=== PATIENT | female | born 1965 | race American Indian/Alaskan Native ===

== ENCOUNTER 2017-07-15 20:33 | Emergency (ER) | payer BC ==
[2017-07-16 00:40] LABS: Basophils # (Auto) 0.1 K/mm3 (0.0-0.1); Basophils % (Auto) 1.9 % (0.0-1.8); Eosinophils % (Auto) 0.9 % (0.0-4.3); Hematocrit 40.8 % (30.3-42.9); Hemoglobin 13.7 gm/dl (10.1-14.3); Lymphocytes # (Auto) 2.7 K/mm3 (1.2-5.4); Lymphocytes % (Auto) 47.9 % (13.4-35.0); Mean Corpuscular HGB Conc 34 % (30-34); Mean Corpuscular Hemoglobin 31 pg (28-32); Mean Corpuscular Volume 92 fl (79-97); Monocytes # (Auto) 0.2 K/mm3 (0.0-0.8); Monocytes % (Auto) 4.2 % (0.0-7.3); Platelet Count 332 K/mm3 (140-440); Red Blood Count 4.46 M/mm3 (3.65-5.03)
[2017-07-16 00:48] LABS: BUN/Creatinine Ratio 16; Blood Urea Nitrogen 11 mg/dL (7-17); Calcium 9.5 mg/dL (8.4-10.2); Hemolysis Index 13
[2017-07-16] MEDS ORDERED: NACL 0.9% 500 ML 500 ML IV ONE (01:07)
--- NOTE | 2017-07-16 01:08 | Emergency Department Report ---
<JEMIMA SMART - Last Filed: 07/16/17 05:26> ED General Adult HPI - General Chief complaint: High BP Stated complaint: HTN Time Seen by Provider: 07/16/17 00:51 Source: patient Mode of arrival: Ambulatory Limitations: No Limitations - History of Present Illness Initial comments: This is a 52-year-old female who was previously unknown to this provider, she does not have a local primary care doctor, she indicates no chronic medical conditions. Patient presents to the ER with a primary complaint of headache. The headache is intermittent over the past week. It started 6 or 7 days ago, and at the time of onset it was not sudden or thunderclap in nature. It does not reach maximal intensity within an hour. Patient reports early wan on the day of presentation, she experienced an occipital headache, which was rapid in onset, more intense and worse than prior headaches, and she's never had a headache like this before. She currently denies severe headache, neck pain, chest pain, abdominal pain, shortness of breath, weakness, numbness, ataxia, unsteady gait. She reports that a cousin had an intracranial issue with "fluid" but does not have a history of aneurysm or subarachnoid hemorrhage that she is aware of. She reports that she typically does not get headaches and this is atypical for her. There are no DVT or pulmonary embolus risk factors. She does not have any hypercoagulable risk factors that she is aware of. -: Gradual, Sudden Location: head Radiation: non-radiation Consistency: intermittent Improves with: none Worsens with: none Associated Symptoms: headaches. denies: confusion, chest pain, cough, diaphoresis, fever/chills, loss of appetite, malaise, nausea/vomiting, rash, seizure, shortness of breath, syncope, weakness - Related Data Previous Rx's Medication Instructions Recorded Last Taken Type Butalb/Acetamin/Caff 50-325-40 1 tab PO Q6HR PRN #20 tab 07/16/17 Unknown Rx [Fioricet] HYDROcodone/APAP 5-325 [[place] 1 each PO Q6HR PRN #12 tablet 07/16/17 Unknown Rx 5/325] Allergies Allergy/AdvReac Type Severity Reaction Status Date / Time No Known Allergies Allergy Unverified 07/15/17 23:45 ED Review of Systems ROS: Stated complaint: HTN Other details as noted in HPI Comment: All other systems reviewed and negative ED Past Medical Hx - Past Medical History Previous Medical History?: Yes Hx Hypertension: Yes - Surgical History Past Surgical History?: Yes Additional Surgical History: , 1989 - Social History Smoking Status: Never Smoker Substance Use Type: Alcohol - Medications Home Medications: Home Medications Medication Instructions Recorded Confirmed Last Taken Type Butalb/Acetamin/Caff 50-325-40 1 tab PO Q6HR PRN #20 tab 07/16/17 Unknown Rx [Fioricet] HYDROcodone/APAP 5-325 [[place] 1 each PO Q6HR PRN #12 tablet 07/16/17 Unknown Rx 5/325] ED Physical Exam - General Limitations: No Limitations General appearance: alert, in no apparent distress - Head Head exam: Present: atraumatic, normocephalic - Eye Eye exam: Present: normal appearance, PERRL, EOMI, other (visual acuity intact to finger counting, color perception, reading at a close distance). Absent: nystagmus - ENT ENT exam: Present: normal exam, normal orophraynx, mucous membranes moist, normal external ear exam - Neck Neck exam: Present: normal inspection, full ROM - Respiratory Respiratory exam: Present: normal lung sounds bilaterally. Absent: respiratory distress - Cardiovascular Cardiovascular Exam: Present: regular rate, normal rhythm, normal heart sounds. Absent: systolic murmur, diastolic murmur, rubs, gallop - GI/Abdominal GI/Abdominal exam: Present: soft, normal bowel sounds. Absent: distended, tenderness, guarding, rebound, rigid, pulsatile mass - Extremities Exam Extremities exam: Present: normal inspection, full ROM, normal capillary refill. Absent: pedal edema, joint swelling, calf tenderness - Back Exam Back exam: Present: normal inspection, full ROM. Absent: tenderness, CVA tenderness (R), paraspinal tenderness, vertebral tenderness - Neurological Exam Neurological exam: Present: alert, oriented X3, CN II-XII intact, normal gait ( normal gait, normal tandem gait, negative pronator drift, normal heel to li.) , other (Extraocular movements intact. Tongue midline. No facial droop. Facial sensation intact to light touch in the V1, V2, V3 distribution bilaterally. 5 and 5 strength in 4 extremities.. Sensation is intact to light touch in 4 extremities.). Absent: motor sensory deficit - Psychiatric Psychiatric exam: Present: anxious - Skin Skin exam: Present: warm, dry, intact, normal color. Absent: rash ED Course Vital Signs 07/15/17 07/16/17 07/16/17 23:39 00:50 02:35 Temperature 98 F 98.3 F Pulse Rate 62 57 L Respiratory 18 16 Rate Blood Pressure 129/91 118/83 124/90 Blood Pressure 118/83 [Left] O2 Sat by Pulse 97 99 Oximetry 07/16/17 07/16/17 07/16/17 02:46 03:00 03:16 Temperature Pulse Rate Respiratory Rate Blood Pressure 124/90 125/84 118/83 Blood Pressure [Left] O2 Sat by Pulse 97 97 96 Oximetry 07/16/17 07/16/17 07/16/17 03:27 03:30 03:46 Temperature Pulse Rate Respiratory 16 Rate Blood Pressure 115/79 115/79 Blood Pressure [Left] O2 Sat by Pulse 96 98 Oximetry 07/16/17 07/16/17 07/16/17 04:00 04:16 04:30 Temperature Pulse Rate Respiratory Rate Blood Pressure 123/77 123/77 114/78 Blood Pressure [Left] O2 Sat by Pulse 98 96 98 Oximetry 07/16/17 07/16/17 07/16/17 04:46 05:20 05:30 Temperature Pulse Rate 61 Respiratory 15 Rate Blood Pressure 114/78 114/78 124/85 Blood Pressure [Left] O2 Sat by Pulse 99 98 96 Oximetry 07/16/17 07/16/17 07/16/17 05:46 06:00 06:16 Temperature Pulse Rate 77 80 76 Respiratory 15 16 14 Rate Blood Pressure 124/85 119/67 119/67 Blood Pressure [Left] O2 Sat by Pulse 95 95 95 Oximetry 07/16/17 07/16/17 07/16/17 06:18 06:30 06:46 Temperature Pulse Rate 71 78 71 Respiratory 15 14 Rate Blood Pressure 109/69 109/69 Blood Pressure [Left] O2 Sat by Pulse 95 96 Oximetry 07/16/17 07/16/17 07/16/17 07:00 07:16 07:30 Temperature Pulse Rate 70 60 66 Respiratory 14 14 15 Rate Blood Pressure 105/74 105/74 103/75 Blood Pressure [Left] O2 Sat by Pulse 96 97 97 Oximetry 07/16/17 07/16/17 07/16/17 07:46 07:52 08:00 Temperature 98.3 F Pulse Rate 77 71 Respiratory 23 18 15 Rate Blood Pressure 103/75 110/69 Blood Pressure 103/75 [Left] O2 Sat by Pulse 97 99 97 Oximetry 07/16/17 07/16/17 07/16/17 08:16 09:50 10:00 Temperature Pulse Rate 62 Respiratory 15 11 L Rate Blood Pressure 110/69 110/69 101/70 Blood Pressure [Left] O2 Sat by Pulse 97 96 97 Oximetry 07/16/17 07/16/17 10:16 10:30 Temperature Pulse Rate 63 64 Respiratory 14 13 Rate Blood Pressure 101/70 110/69 Blood Pressure [Left] O2 Sat by Pulse 90 92 Oximetry - Reevaluation(s) Reevaluation #1: 07/16/17 03:27 Differential diagnosis, including not limited to: Migraine headache, tension headache, cluster headache, subarachnoid hemorrhage Assessment and plan: 52-year-old female with a primary complaint of headache. The headache has been intermittent over the past week, but she reports that on the evening of presentation she experienced a rather sudden in onset occipital headache, which was stronger and different than prior headaches, and not somewhat to prior headaches. She has a GCS of 15, with an NIH score of 0 and is clinically sober at this time, with no neck pain or neck stiffness. Laboratory studies were unremarkable, she was medicated appropriately, the noncontrast CT scan of the brain was obtained which was negative for subarachnoid hemorrhage. There are no risk factors for venous sinus thrombosis. Her history and physical at this point in time is not consistent with meningitis. Extensive discussion had with patient regarding risks, benefits, alternatives for spinal tap. Patient gave verbal and written consent for spinal tap which was unsuccessful. Patient is somewhat obese, has known history of lumbar spine arthritis and was technically difficult tap. Therefore, a CT angiogram will be obtained, and the patient will be sent to fluoroscopy in the morning for a fluoroscopically guided spinal tap. Reevaluation #2: 07/16/17 05:07 Patient is resting comfortably. Patient in no distress. Awaiting CT angiogram results. Reevaluation #3: 07/16/17 05:26 Care is transferred to the oncoming ER physician, Dr. Jackson, to follow-up on CT angiogram of the head and neck, and to follow up on fluoroscopically guided spinal tap. - Lumbar Puncture Consent Obtained: verbal consent, written consent, emergent situation Time Out Performed: Yes Indication for Procedure: headache, R/O SA bleed Patient Position: Sitting Upright/Leaning F Skin Prep: Povidone-Iodine 1% Local Anesthetic Used: Lidocaine 2% Amount of anesthesia used (mls): 15 Spinal Needle Gauge: 22G Interspace Used: L3-L4 Complications: unable to obtain CSF, low back pain, bleeding Patient Tolerated Procedure: well ED Medical Decision Making - Lab Data Result diagrams: 07/15/17 23:50 07/15/17 23:50 Vital Signs 07/15/17 07/16/17 07/16/17 23:39 00:50 02:35 Temperature 98 F 98.3 F Pulse Rate 62 57 L Respiratory 18 16 Rate Blood Pressure 129/91 118/83 124/90 Blood Pressure 118/83 [Left] O2 Sat by Pulse 97 99 Oximetry Lab Results 07/15/17 07/15/17 07/16/17 Range/Units 23:50 23:50 01:17 WBC 5.7 (4.5-11.0) K/mm3 RBC 4.46 (3.65-5.03) M/mm3 Hgb 13.7 (10.1-14.3) gm/dl Hct 40.8 (30.3-42.9) % MCV 92 (79-97) fl MCH 31 (28-32) pg MCHC 34 (30-34) % RDW 13.0 L (13.2-15.2) % Plt Count 332 (140-440) K/mm3 Lymph % (Auto) 47.9 H (13.4-35.0) % [place] % (Auto) 4.2 (0.0-7.3) % Eos % (Auto) 0.9 (0.0-4.3) % Baso % (Auto) 1.9 H (0.0-1.8) % Lymph # 2.7 (1.2-5.4) K/mm3 [place] # 0.2 (0.0-0.8) K/mm3 Eos # 0.0 (0.0-0.4) K/mm3 Baso # 0.1 (0.0-0.1) K/mm3 Seg Neutrophils % 45.1 (40.0-70.0) % Seg Neutrophils # 2.6 (1.8-7.7) K/mm3 PT 13.1 (12.2-14.9) Sec. INR 0.95 (0.87-1.13) APTT 34.4 (24.2-36.6) Sec. Sodium 138 (137-145) mmol/L Potassium 4.4 (3.6-5.0) mmol/L Chloride 96.1 L (98-107) mmol/L Carbon Dioxide 28 (22-30) mmol/L Anion Gap 18 mmol/L BUN 11 (7-17) mg/dL Creatinine 0.7 (0.7-1.2) mg/dL Estimated GFR > 60 ml/min BUN/Creatinine Ratio 16 % Glucose 91 (65-100) mg/dL Calcium 9.5 (8.4-10.2) mg/dL - Radiology Data Radiology results: report reviewed, image reviewed noncontrast CT scan of the brain is negative for acute disease Critical care attestation.: If time is entered above; I have spent that time in minutes in the direct care of this critically ill patient, excluding procedure time. ED Disposition Clinical Impression: Headache Disposition: DC-01 TO HOME OR SELFCARE Condition: Stable Instructions: Acute Headache (ED) Additional Instructions: Take the Fioricet as needed for headache and take the [place] if you continue to have pain despite the Fioricet. Follow-up with your doctor as scheduled next week. If your headaches continue you will need neurology follow-up as well. Prescriptions: Butalb/Acetamin/Caff 50-325-40 [Fioricet] 1 tab PO Q6HR PRN #20 tab PRN Reason: Headache HYDROcodone/APAP 5-325 [[place] 5/325] 1 each PO Q6HR PRN #12 tablet PRN Reason: Pain Referrals: you, primary care doctor [Other] - 7-10 days <WENDY JACKSON - Last Filed: 07/16/17 12:21> ED Course - Reevaluation(s) Reevaluation #4: 07/16/17 12:18 pt feeling better, informed that results negative for sah, will be d/ioana home, has apt with a new PMD next week. ED Medical Decision Making - Lab Data Result diagrams: 07/15/17 23:50 07/15/17 23:50 - Medical Decision Making Tube 1 shows elevated RBCs that decreased to 4 in tube 4 suggesting traumatic tap. Patient has a normal CT angiogram head and neck, CT head noncontrast, and LP not suggestive of subarachnoid hemorrhage. She'll be discharged home with pain medication. ED Disposition Is pt being admited?: No Does the pt Need Aspirin: No Time of Disposition: 12:21
[2017-07-16 01:44] LABS: INR 0.95 (0.87-1.13)
[2017-07-16 01:45] LABS: Partial Thromboplastin Time 34.4 Sec. (24.2-36.6)
--- NOTE | 2017-07-16 01:55 | Cat Scan Report ---
FINAL REPORT EXAM: CT HEAD/BRAIN WO CON HISTORY: headache TECHNIQUE: Routine axial imaging was obtained of the brain without IV contrast. FINDINGS: There is no evidence of acute stroke or hemorrhage. The ventricular system is appropriate in size and is symmetric. The basal cisterns appear normal. The visualized sinuses are clear. The mastoid air cells are well pneumatized. The calvarium appears intact. IMPRESSION: No acute intracranial process.
[2017-07-16] MEDS ORDERED: SUBLIMAZE IV ONE (02:03)
[2017-07-16] MEDS ORDERED: SUBLIMAZE IV NR (02:03)
[2017-07-16] MEDS ORDERED: XYLOCAINE 2% INFILTRATI ONE (02:04)
[2017-07-16] MEDS ORDERED: NACL ONE (04:21)
--- NOTE | 2017-07-16 05:48 | Cat Scan Report ---
FINAL REPORT EXAM: CT ANGIO HEAD HISTORY: mera, ? sah TECHNIQUE: A CT angiogram was obtained of the intracranial arteries following the intravenous injection of 100 cc of Omnipaque 350. Rotational, sagittal and coronal MIP reconstructions were reviewed. FINDINGS: Both vertebral arteries are patent with normal visualization of the basilar artery. There is normal bifurcation of the basilar artery into both posterior cerebral arteries. In the anterior circulation both supraclinoid internal arteries are widely patent with normal bifurcation into the anterior and middle cerebral arteries bilaterally. There is no evidence of arterial stenosis, thrombosis or aneurysm. There is no abnormal enhancement identified. Dural venous sinuses opacify normally. IMPRESSION: Within normal limits. In particular, no evidence of aneurysm, arterial stenosis, or arterial thrombosis. Normal visualization of the dural venous sinuses.
--- NOTE | 2017-07-16 05:53 | Cat Scan Report ---
FINAL REPORT EXAM: CT ANGIO NECK HISTORY: mera, ? sah TECHNIQUE: A CT angiogram was obtained of the arteries of the neck following the intravenous injection of 100 cc Omnipaque 350. Rotational, sagittal, and coronal MIP reconstructions were reviewed. FINDINGS: Both common carotid arteries are widely patent with normal bifurcation into the internal and external carotid branches. Both vertebral arteries are widely patent also. There is no evidence of arterial dissection or stenosis. The airway appears normal. There is no evidence of adenopathy. The thyroid gland is normal size and reveal several sub centimeter diameter low-attenuation foci in both thyroid lobes. The lung apices are clear. The retropharyngeal space appears normal. The skeletal structures do not show any acute changes. The visualized sinuses are clear. The mastoid air cells are well pneumatized. IMPRESSION: Unremarkable CT angiogram of the arteries in the neck as described. Several sub centimeter in diameter low-attenuation foci in both thyroid lobes. Further evaluation may be obtained with outpatient thyroid sonography. No acute process in the neck.
[2017-07-16] MEDS ORDERED: ZOFRAN IV ONE (08:36)
[2017-07-16] MEDS ORDERED: DILAUDID IV ONE (08:36)
[2017-07-16 10:23] LABS: Glucose,CSF 60 mg/dL
[2017-07-16 11:10] LABS: Total Cells Counted 10 /mm3
[2017-07-16 11:12] LABS: Appearance,CSF Clear; Red Blood Cell,CSF 4 /mm3 (0-0); White Blood Cell,CSF 34 /mm3 (1-10)
[2017-07-16 11:28] LABS: Basophils CSF 0 %
[2017-07-16 11:55] LABS: Appearance,CSF Clear
[2017-07-16 11:56] LABS: Red Blood Cell,CSF 108 /mm3 (0-0); White Blood Cell,CSF 31 /mm3 (1-10)
[2017-07-16 12:49] LABS: Total Cells Counted 20 /mm3
[2017-07-16 12:50] LABS: Basophils CSF 0 %
[2017-07-16 13:34] VITALS: BP 116/93
[2017-07-16] MEDS ORDERED: WATER FOR IRRIG STERILE IR ONE (14:00)
--- NOTE | 2017-07-16 14:42 | Fluoroscopy Report ---
FLUOROSCOPY LUMBAR PUNCTURE HISTORY: Subarachnoid hemorrhage. Headache. DESCRIPTION OF PROCEDURE: Informed consent was obtained. Sterile technique was utilized. 1% lidocaine for skin anesthesia. Lumbar puncture was performed at the L2-3 level under fluoroscopic observation. 2 fluoroscopic images were captured. The opening pressure was normal measuring approximately 10 cm of water. There was spontaneous return of blood-tinged CSF which cleared quickly. Approximately 6 cc of CSF fluid was collected in 4 tubes. No complications. IMPRESSION: Successful fluoroscopy-guided lumbar puncture.
--- NOTE | 2017-07-16 14:50 | Procedure Note ---
Date of procedure: 07/16/17 Pre-op diagnosis: subarachnoid hemorrhage, headache Post-op diagnosis: same Procedure: flouro guided lumbar puncture Findings: none Anesthesia: local Surgeon: JETT SINGH Estimated blood loss: none Pathology: list (4 csf tubes - 6cc) Specimen disposition: to lab Condition: stable Disposition: other (back to er)
== END 2017-07-16 13:35 | disposition home or self-care (01) ==
LOC: ED 20:33
DX: I10 Essential (primary) hypertension (principal)
CPT/HCPCS: 36415; 62270; 70450; 70496; 70498; 77003; 80048; 82947; 84160; 85025; 85610; 85730; 87116; 89051; 96374; 96375; 99284; J1170; J2405; J3010; J7040; Q9967